=== PATIENT | female | born 1995 | race Caucasian/White ===

== ENCOUNTER 2020-03-14 10:25 | Emergency (ER) | payer OTHER, BC ==
[2020-03-14] MEDS ORDERED: Sodium Chloride 0.9% 10 ML Syringe FLUSH PRN (10:40)
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
[2020-03-14] MEDS ORDERED: Morphine 4 MG/ML VIAL IVPUSH ONE (10:41)
[2020-03-14] MEDS ORDERED: Ondansetron 4 MG/2 ML SDV IVPUSH ONE (10:41)
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
--- NOTE | 2020-03-14 11:35 | CT ---
[id number] CT/CT Head WO IV EXAM: CT Head WO IV CLINICAL DATA: TRAUMA. COMPARISON STUDY: None FINDINGS: No intracranial hemorrhage, extra-axial fluid collection, mass, or acute ischemia. Generalized parenchymal atrophy with scattered areas of nonspecific white matter disease, commonly seen as sequela of chronic microvascular ischemia. Right frontoparietal scalp hematoma without underlying calvarial fracture. Paranasal sinuses and mastoid air cells are clear. IMPRESSION: No acute intracranial findings. Irwin Morales DO 03/14/20 1133 Thank you for allowing us to participate in the care of your patient.
[2020-03-14] MEDS ORDERED: Diphtheria,Pertussis(Acell),Tetanus Vaccine 0.5 ML SDV IM ONE (12:12)
== END 2020-03-14 13:00 | disposition home or self-care (01) ==
LOC: KA.ED 10:25
DX: S16.1XXA Strain of muscle, fascia and tendon at neck level, initial encounter (principal); S09.90XA Unspecified injury of head, initial encounter; S00.91XA Abrasion of unspecified part of head, initial encounter; Z88.1 Allergy status to other antibiotic agents; Z23 Encounter for immunization; V84.5XXA Driver of special agricultural vehicle injured in nontraffic accident, initial encounter; Y92.411 Interstate highway as the place of occurrence of the external cause
CPT/HCPCS: 70450; 72125; 90471; 90715; 96374; 96375; 99283; 99284-25; J2270; J2405